=== PATIENT | female | born 1950 | race Caucasian/White ===

== ENCOUNTER → 2024-03-10 13:24 | Outpatient (REF) | payer OTHER, SELFPAY | LOC: RAD 13:24 | PROVIDERS: ATTENDING PHYSICIAN Nurse Practitioner Adult Health | DX: E78.5 Hyperlipidemia, unspecified (principal) | CPT/HCPCS: 75571 ==

== ENCOUNTER → 2024-04-20 11:46 | Outpatient (REF) | payer OTHER, SELFPAY | LOC: WDC 11:46 | PROVIDERS: ATTENDING PHYSICIAN Nurse Practitioner Adult Health | DX: Z12.31 Encounter for screening mammogram for malignant neoplasm of breast (principal) | CPT/HCPCS: 77063; 77067 ==

== ENCOUNTER → 2024-08-31 06:36 | Day surgery (SDC) | payer OTHER, SELFPAY | LOC: GI 06:36 | PROVIDERS: ATTENDING PHYSICIAN Internal Medicine Gastroenterology | DX: Z12.11 Encounter for screening for malignant neoplasm of colon (principal); K57.30 Diverticulosis of large intestine without perforation or abscess without bleeding; K64.8 Other hemorrhoids; R19.7 Diarrhea, unspecified | CPT/HCPCS: 45380; 88305 ==

== ENCOUNTER 2025-01-18 10:47 | Emergency (ER) | payer OTHER, SELFPAY ==
[2025-01-18 10:48] VITALS: BP 149/56
[2025-01-18 11:15] LABS: % Basophils 0.5 % (0-2); % Eosinophils 0.5 % (0-6); % Immature Granulocytes 0.2 % (0-0.5); % Monocytes 4.3 % (1.7-9.3); % Neutrophils 62.5 % (42.2-75.2); Absolute Monocytes 0.3 10^3/uL (0.1-0.6); Absolute Neutrophils 3.8 10^3/uL (1.4-6.5); Hematocrit 40.1 % (37.0-47.0); Hemoglobin 13.3 g/dL (12.0-16.0); Mean Corp Hgb Conc. 33.2 g/dL (33.0-37.0); Mean Corpuscular Hgb 29.9 pg (27.0-31.0); Mean Corpuscular Volume 90.1 fL (81.0-99.0); Mean Platelet Volume 10.4 fL (7.4-10.4); Nucleated Red Blood Cells % 0 %; Platelet Count 215 10^3/uL (130-400); Red Blood Cell Count 4.45 10^6/uL (4.20-5.40); White Blood Cell Count 6.1 10^3/uL (4.8-10.8)
[2025-01-18 11:28] LABS: ALT (SGPT) 26 U/L (0-35); AST (SGOT) 23 U/L (14-36); Albumin 4.3 g/dl (3.5-5.0); Alkaline Phosphatase 70 U/L (38-126); Blood Urea Nitrogen 14 mg/dl (7-17); Calcium 9.6 mg/dl (8.4-10.2); Carbon Dioxide 27 mmol/L (22-30); Chloride 101 mmol/L (98-107); Glucose 101 mg/dl (70-99); Potassium 3.9 mmol/L (3.5-5.1); Sodium 139 mmol/L (135-145); Total Bilirubin 0.7 mg/dl (0.2-1.3); Total Protein 7.2 g/dl (6.3-8.2); eGFR > 60.00
[2025-01-18 12:14] VITALS: BP 110/51
[2025-01-18 13:00] VITALS: BP 99/67
[2025-01-18] MEDS: ANTIVERT 25 MG PO (13:36)
--- NOTE | 2025-01-18 13:37 | ED.GENMED ---
History of Present Illness
General
Chief Complaint: Dizziness
Source: patient
Exam Limitations: none
Time Seen by Provider: 01/18/25 12:11
Nursing documentation reviewed up to this point in time: agreed with
History of Present Illness
History of Present Illness:
74-year-old female presenting to the emergency department today with concerns of room spinning dizziness that occurred earlier this morning roughly 6 hours prior to arrival to the emergency department. Symptoms worse with movement and improved when
sitting still. Had 1 episode of vomiting during symptoms but otherwise feels well at this point no chest pain shortness of breath or palpitations. Denies similar symptoms in the past. No recent viral illnesses.
Past History
Social History
Tobacco: Non-smoker
Employment: Employed
Review of Systems
Review of Systems
Allergies reviewed?: Yes
All Other Systems: ROS reviewed and negative except as documented in HPI and ROS
Phy Exam
Physical Exam
Physical Exam:
GENERAL: Alert , in no apparent distress
EYE: pupils equal and reactive
NECK: Supple, no significant adenopathy.
ENT: o/p clr, mmm.
CARDIAC: Regular rate and rhythm .
LUNGS: Clear breath sounds bilaterally, no acute respiratory distress, no wheezes/rales/rhonchi
ABDOMEN: Soft, without focal tenderness, no r/g, no cvat
NEUROLOGICAL: Alert and oriented, no focal neuro deficits
SKIN: Warm and dry, skin intact.
MUSCULOSKELETAL: No edema, well perfused.
PSYCH: Normal and appropriate interaction.
Course
Orders/Labs/Results
Orders:
Orders
01/18/25 10:51
Electrocardiogram (*1) Urgent
Reason for Study: Chest Pain
EKG- Treatment ONCE
01/18/25 11:01
Complete Blood Count/With Diff Urgent
Comprehensive Metabolic Panel Urgent
01/18/25 12:27
CT Head W/o Iv Contrast Urgent
Comment:
Reason For Exam: dizziness
Meclizine [Antivert] 25 mg PO NOW STA
Pt Eval And Treat Urgent
Treatment: vestibular
Activity Level: Ambulate
Abnormal Lab Results
01/18/25
11:01
Glucose 101 H mg/dl
(70-99)
01/18/25 11:01
01/18/25 11:01
Vital Signs
Initial and Last Documented VS:
Initial Vital Signs
Temp Pulse Resp BP Pulse Ox
98.4 F 68 20 149/56 99
01/18/25 10:48 01/18/25 10:48 01/18/25 10:48 01/18/25 10:48 01/18/25 10:48
Last Documented Vital Signs
Temp Pulse Resp BP Pulse Ox
98.4 F 56 13 110/57 100
01/18/25 10:48 01/18/25 14:00 01/18/25 14:00 01/18/25 14:00 01/18/25 13:30
MDM/Problems Addressed
MDM/Problems Addressed:
74-year-old female presenting to the emergency department with worsening dizziness that occurred after sitting up abruptly earlier this morning. No additional symptoms otherwise. Vomited 1 time while feeling dizzy currently symptoms have improved.
Normal neurologic evaluation here. No ongoing symptoms at this point. Seem to be fatigable with sitting still earlier sounds consistent with peripheral vertigo. Labs and CT scan without emergent findings. Patient seen by PT with no reproducible
symptoms. Likelihood of stroke is very unlikely at this point. Patient with likely peripheral vertigo that is now resolved stable for outpatient management return precautions given.
*Critical Care Note
Total Time (30-74mins, 75-104mins- exclusive of procedures): Not Applicable
ED Attending Note
-
Portions of this chart may have been created with voice recognition software.� Occasional wrong word or��sound alike� substitutions may have occurred due to the inherent limitations of voice recognition software.
Discharge Plan
Departure
Patient Disposition: Home (Routine Discharge)
Date of Disposition: 01/18/25
Time of Disposition: 14:36
Patient with high blood pressure during this ER visit?: No
Condition: Good
Covid-19: Not Applicable
Discharge Problem:
Vertigo
Instructions: Vertigo (a Type of Dizziness) (DC)
Prescriptions:
New
meclizine 25 mg tablet
25 mg PO BID PRN (Reason: dizziness) Qty: 7 0RF
Referrals:
Joyce Montoya CRNP [Family Provider] -
Activity Restrictions/Additional Instructions:
You came to the emergency department today with concerns of dizziness. Here you had a reassuring assessment. Please follow closely as an outpatient. Return for any worsening, new or concerning symptoms.
Interventions
Interventions:
*Risk Screen - Suicide Last Done: 01/18/25 10:48
*General Assessment Last Done: 01/18/25 10:48
*Neglect/Abuse Screening Last Done: 01/18/25 10:48
ED- Fall Risk Assessment Last Done: 01/18/25 12:14
*ED COVID-19 Vaccine History Last Done: 01/18/25 12:02
*Nursing Disposition Last Done: 01/18/25 14:47
ED- Neurological Assessment Last Done: 01/18/25 12:14
ED- Cardiac Assessment Last Done: 01/18/25 12:14
Discharge Date and Time
Discharge Date/Time: 01/18/25 14:48
Print Language: GAMBIAN
[2025-01-18 14:00] VITALS: BP 110/57
== END 2025-01-18 14:48 | disposition home or self-care (01) ==
LOC: EMR 10:47
PROVIDERS: EMERGENCY PHYSICIAN Emergency Medicine; FAMILY PHYSICIAN Nurse Practitioner Adult Health
DX: R42 Dizziness and giddiness (principal)
CPT/HCPCS: 99285; 70450; 80053; 85025; 93005

== ENCOUNTER → 2025-05-17 09:10 | Outpatient (REF) | payer MEDICARE, SELFPAY | LOC: RAD 09:10 | PROVIDERS: ATTENDING PHYSICIAN Nurse Practitioner Adult Health | DX: Z78.0 Asymptomatic menopausal state (principal) | CPT/HCPCS: 77080 ==